=== PATIENT | male | born 1985 | race Two or more races ===

== ENCOUNTER 2017-01-16 06:21 | Emergency (ER) | payer OTHER ==
[~2017-01-16] VITALS: Ht 170.2 cm; Wt 116.5 kg
[~2017-01-16 06:21] MED LIST: ACET500T68 PO; OXYC5CAP PO; POLY17PO5 PO; TRAZ50TA15 PO; VALA500T5 PO; WARF5TAB7 PO
[2017-01-16] MEDS ORDERED: DOXY100T PO (06:47)
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
[2017-01-16 07:05] VITALS: BP 148/90
[2017-01-16] MEDS ORDERED: ONDANSETRON ODT 4 MG TAB.RAPDIS PO ONE (07:15)
[2017-01-16] MEDS ORDERED: DOXYCYCLINE HYCLATE 100 MG TABLET PO ONE (07:15)
== END 2017-01-16 07:05 | disposition home or self-care (01) ==
LOC: ER 06:21
DX: J06.9 Acute upper respiratory infection, unspecified (principal); E86.0 Dehydration; F17.210 Nicotine dependence, cigarettes, uncomplicated; Z88.1 Allergy status to other antibiotic agents
CPT/HCPCS: 99283; Q0162

== ENCOUNTER 2019-05-30 15:56 | Emergency (ER) | payer OTHER ==
[~2019-05-30] VITALS: Ht 170.2 cm; Wt 11.5 kg
[~2019-05-30 15:56] MED LIST changes: +DOXY100T PO; +TRAZ-120 PO; -TRAZ50TA15 PO; +WARF-31 PO; -WARF5TAB7 PO
[2019-05-30] MEDS ORDERED: IV NORMAL SALINE 1,000ML 1,000 ML IV ONE (16:30)
--- NOTE | 2019-05-30 16:44 | RAD ---
CHEST AP ONLY 05/30/2019 4:17 PM INDICATION: Shortness of breath COMPARISON: None available TECHNIQUE: Portable frontal view of the chest is provided. FINDINGS: The cardiomediastinal silhouette is within normal limits. Lungs are clear. There are no significant pleural effusions. There is no pulmonary vascular congestion. No pneumothorax. IMPRESSION: There is no acute cardiopulmonary process. Electronically signed by: Ranjana Tenorio MD (05/30/2019 4:41 PM) [facility]
[2019-05-30 16:54] LABS: BASO # 0.2 x10^3/uL (0.0-0.2); BASO % 1 % (0-3); EOS # 0.1 x10^3/uL (0.0-0.7); EOS % 1 % (0-3); HEMATOCRIT 45.9 % (39.0-53.0); HEMOGLOBIN 15.8 g/dL (13.0-17.5); LYMPH # 4.5 x10^3/uL (1.0-4.8); LYMPH % 22 % (24-48); MEAN CORPUSCULAR HEMOGLOBIN 30 pg (25-35); MEAN CORPUSCULAR HGB CONC 34 g/dL (31-37); MEAN CORPUSCULAR VOLUME 87 fL (79-100); MONO # 4.2 x10^3/uL (0.0-1.1); MONO % 21 % (0-9); NEUT # 11.2 x10^3uL (1.8-7.7); NEUT % 56 % (31-73); PLATELET COUNT 372 x10^3/uL (140-400); RED BLOOD COUNT 5.28 x10^6/uL (4.30-5.70); RED CELL DISTRIBUTION WIDTH 13.6 % (11.5-14.5); WHITE BLOOD COUNT 20.2 x10^3/uL (4.0-11.0)
[2019-05-30 16:56] LABS: CALCIUM 8.9 mg/dL (8.5-10.1); CREATININE 1.1 mg/dL (0.7-1.3); GFR 76.6; POTASSIUM 3.7 mmol/L (3.5-5.1)
[2019-05-30 17:03] LABS: ALBUMIN 3.5 g/dL (3.4-5.0); ALBUMIN/GLOBULIN RATIO 0.9 (1.0-1.7); TOTAL BILIRUBIN 0.7 mg/dL (0.2-1.0); TOTAL PROTEIN 7.2 g/dL (6.4-8.2)
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
[2019-05-30 17:26] VITALS: BP 181/102
[2019-05-30 17:36] LABS: % ATYL 3 % (0-0); % BANDS 1 % (0-9); % BASOS 1 % (0-3); % LYMPHS 29 % (24-48); % MONOS 17 % (0-10); % SEGS 49 % (35-66)
[2019-05-30 17:38] LABS: PLT ESTIMATE ADEQUATE (ADEQUATE)
[2019-05-30] MEDS ORDERED: KETOROLAC 30 MG/ML VIAL. IVP ONE (17:45)
== END 2019-05-30 17:58 | disposition home or self-care (01) ==
LOC: ER 15:56
DX: U07.1 COVID-19 (principal); Z88.1 Allergy status to other antibiotic agents
CPT/HCPCS: 36415; 71045; 80053; 83605; 85007; 85025; 87635; 96374; 99284; J1885; J7030

== ENCOUNTER 2020-10-05 01:16 | Emergency (ER) | payer OTHER ==
[~2020-10-05] VITALS: Ht 170.2 cm; Wt 105.8 kg
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
[2020-10-05] MEDS ORDERED: IV RINGERS SOLUTION,LACTATED 1,000 ML IV SCH (03:00)
--- NOTE | 2020-10-05 03:08 | RAD ---
AP chest x-ray HISTORY: Positive Covid infection, chest pain. FINDINGS: Heart size is normal. No pneumothorax. No pulmonary opacities. Small pleural effusions vers us pleural thickening along the left lateral diaphragm blunting the costophrenic angle. Bridging ossi fication between the posterior left sixth and seventh ribs. IMPRESSION: Small left pleural effusion versus pleural thickening along the left lateral diaphragm. Electronically signed by: Shimon Vitale MD (10/05/2020 3:06 AM) [facility]
[2020-10-05 03:18] LABS: BACTERIA,URINE 0 /HPF (0-FEW); BILIRUBIN,URINE NEG (NEG); CLARITY,URINE CLEAR; COLOR,URINE YELLOW; GLUCOSE,URINE NEG (NEG); NITRITE,URINE NEG (NEG); RBC,URINE 0 /HPF (0-2); SQUAMOUS EPITHELIAL CELL,UR OCC /LPF; UROBILINOGEN,URINE 0.2 mg/dL (0.2 mg/dL); WBC,URINE RARE /HPF (0-4)
[2020-10-05] MEDS ORDERED: CONTRAST GIVEN. MC PRN (03:30)
[2020-10-05 03:32] LABS: CALCIUM 8.4 mg/dL (8.5-10.1); GFR 84.5; POTASSIUM 3.8 mmol/L (3.5-5.1)
[2020-10-05 03:45] LABS: ALBUMIN 4.2 g/dL (3.4-5.0); C REACTIVE PROTEIN 14.6 mg/L (0-3.3); DIRECT BILIRUBIN 0.1 mg/dL (0.0-0.2); MAGNESIUM 2.2 mg/dL (1.8-2.4); TOTAL BILIRUBIN 0.6 mg/dL (0.2-1.0); TOTAL PROTEIN 7.6 g/dL (6.4-8.2)
[2020-10-05] MEDS ORDERED: ONDANSETRON PF 4 MG/2 ML VIAL. IVP ONE ×2 (04:00→04:30)
[2020-10-05] MEDS ORDERED: IOHEXOL 350 MG/ML 100 ML VIAL. IV ONE (04:00)
--- NOTE | 2020-10-05 04:02 | EKG ---
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
--- NOTE | 2020-10-05 04:38 | RAD ---
CT angiography chest with contrast PQRS statement: CT scans at this facility use dose reduction including either automated exposure cont rol, iterative reconstructions, and /or weight based radiation dosing via mA and kV modification when appropriate to reduce radiation dose to as low as reasonably achievable. Contrast: 100 mL Omnipaque 350 intravenous contrast with 3-D MIP reconstructions of the arteries acqu ired. HISTORY: Dyspnea. Chest pain. History of pulmonary emboli. FINDINGS: Ectasia ascending thoracic aorta diameter 3.7 cm. Heart size normal. Esophagus unremarkable . No pulmonary artery emboli. There is mild mediastinal and hilar adenopathy largest lymph node at th e right hilum measuring 1.5 cm. Hypodense liver may be fatty. Bronchial wall thickening likely bronch itis. Centrilobular nodularity at the right upper lobe apical and posterior segments nodules measurin g up to 10 mm. No pleural effusions. Bones are unremarkable. IMPRESSION: 1. No pulmonary artery emboli. 2. Extensive centrilobular nodularity and nodular opacities at the right upper lobe largest measuring 10 mm. This is typical of endobronchial pneumonia or other inflammatory process. Follow-up CT imagin g in 3 months is advised to document that this resolves to exclude an underlying neoplastic nodule. 3. Mediastinal and right hilar mild adenopathy. Attention on follow-up is advised. 4. Bronchial wall thickening with luminal narrowing and bronchi typical of bronchitis. Electronically signed by: Shimon Vitale MD (10/05/2020 4:35 AM) [facility]
[2020-10-05 04:40] LABS: BASO # 0.2 x10^3/uL (0.0-0.2); BASO % 2 % (0-3); EOS # 0.7 x10^3/uL (0.0-0.7); EOS % 7 % (0-3); HEMATOCRIT 40.8 % (39.0-53.0); HEMOGLOBIN 14.5 g/dL (13.0-17.5); LYMPH # 4.7 x10^3/uL (1.0-4.8); LYMPH % 42 % (24-48); MEAN CORPUSCULAR HEMOGLOBIN 30 pg (25-35); MEAN CORPUSCULAR HGB CONC 36 g/dL (31-37); MEAN CORPUSCULAR VOLUME 86 fL (79-100); MONO # 2.3 x10^3/uL (0.0-1.1); MONO % 21 % (0-9); NEUT # 3.3 x10^3uL (1.8-7.7); NEUT % 29 % (31-73); PLATELET COUNT 298 x10^3/uL (140-400); RED BLOOD COUNT 4.76 x10^6/uL (4.30-5.70); RED CELL DISTRIBUTION WIDTH 13.4 % (11.5-14.5); WHITE BLOOD COUNT 11.1 x10^3/uL (4.0-11.0)
[2020-10-05] MEDS ORDERED: KETOROLAC 30 MG/ML VIAL. IVP ONE (04:45)
[2020-10-05] MEDS ORDERED: IV RINGERS SOLUTION,LACTATED 1,000 ML IV ONE (05:00)
[2020-10-05] MEDS ORDERED: AZIT250T PO (05:22)
[2020-10-05] MEDS ORDERED: ONDA4TAB7 PO (05:22)
[2020-10-05 06:00] VITALS: BP 117/74
[2020-10-05] MEDS ORDERED: ALBUTEROL SULFATE 8GM INHALER. INH ONE (06:00)
[2020-10-05] MEDS ORDERED: AZITHROMYCIN 250 MG TABLET. PO ONE (06:00)
--- NOTE | 2020-10-05 06:41 | EKG ---
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
== END 2020-10-05 06:30 | disposition home or self-care (01) ==
LOC: ER 01:16
DX: J18.9 Pneumonia, unspecified organism (principal); B34.9 Viral infection, unspecified; D72.829 Elevated white blood cell count, unspecified; R79.82 Elevated C-reactive protein (CRP); Z20.822 Contact with and (suspected) exposure to COVID-19
CPT/HCPCS: 36415; 71045; 71275; 80048; 80076; 81001; 82550; 83605; 83690; 83735; 83880; 84443; 84484; 85025; 85379; 85610; 85730; 86140; 87040; 87070; 87426; 87880; 93005; 94640; 96361; 96374; 96375; 99285; C9803; J1885; J2405; J7120; Q9967; U0003; 94664